=== PATIENT | male | born 1970 | race Caucasian/White ===

== ENCOUNTER → 2017-05-08 09:20 | Outpatient (CLI) | payer OTHER, SELFPAY ==
[2017-05-08 10:18] LABS: ALB/GLOB Ratio 0.9 RATIO (0.9-2.4); AST(SGOT) 31 U/L (15-37); Alanine Aminotransfer ALT/SGPT 36 U/L (16-61); Albumin, Serum 3.7 g/dL (3.2-5.0); Alkaline Phosphatase 114 U/L (45-117); Anion Gap 7 (5-15); BUN 15 mg/dL (7-18); BUN/Creat Ratio 15.4 RATIO (10-20); Calcium,Total 8.5 mg/dL (8.5-10.1); Chloride 104 mmol/L (98-107); Cholesterol 211 mg/dL (200); Creatinine, Serum 0.97 mg/dL (0.70-1.30); EST Glomerular Filtration Rate 88 mL/min (>60); Est Glom Filt Rate - Afr Amer 107 mL/min (>60); Glucose 90 mg/dL (74-106); High Density Lipoprotein 40 mg/dL; Potassium 4.2 mmol/L (3.5-5.1); Protein, Total 7.7 g/dL (6.4-8.2); Sodium Level 140 mmol/L (136-145); Triglycerides 225 mg/dL; Very Low Density Lipoprotein 45 mg/dL (5-40)
== END ==
PROVIDERS: Family Provider Internal Medicine; PCP Internal Medicine; Visit Provider Internal Medicine
DX: E78.5 Hyperlipidemia, unspecified (principal)
CPT/HCPCS: 36415; 80053; 80061

== ENCOUNTER 2022-10-10 06:16 | Emergency (ER) | payer OTHER, SELFPAY ==
[2022-10-10 06:17] VITALS: BP 147/97; PULSE 95; RESP 16; TEMP 36.9; O2SAT 98; BMI 21.9
--- NOTE | 2022-10-10 06:44 | CT_ITS ---
INDICATION: Left lower abdominal pain, diarrhea EXAMINATION: CT Abdomen And Pelvis W/ Contrast Injection TECHNIQUE: Helically acquired images were obtained of the abdomen and pelvis following IV contrast. 2-D reconstructions reviewed. A radiation dose optimization technique was used for this scan. IV Contrast dosage and agent: 100 cc Isovue-370 Oral contrast: None. COMPARISON: Unenhanced CT abdomen and pelvis from 10/14/2016 FINDINGS: LOWER CHEST: Mild subsegmental linear atelectasis. Heart size within normal limits. LIVER: There are few small simple appearing hepatic cysts requiring no additional follow-up. No concerning lesion. GALLBLADDER AND BILIARY TREE: No calcified gallstones identified. No gallbladder wall edema demonstrated. No significant biliary ductal dilation. PANCREAS: No discrete mass or peripancreatic edema. SPLEEN: Normal size without concerning lesion. ADRENAL GLANDS: Unremarkable. KIDNEYS AND URETERS: Normal renal size and position. No perinephric edema or hydronephrosis. No concerning lesion. PERITONEUM: Small amount of free fluid within lower abdomen. No free air or abscess detected. RETROPERITONEUM: No retroperitoneal mass or pathologic fluid collection. BOWEL: Scattered colonic diverticula. Markedly thickened distal descending colon with pericolonic fat stranding and edema. No bowel obstruction. Normal appendix within right lower quadrant. LYMPH NODES: No enlarged mesenteric or retroperitoneal lymph nodes. VESSELS: No acute findings. No abdominal aortic aneurysm. URINARY BLADDER: Mild circumferential urinary bladder wall thickening again noted. Small thin-walled 1.3 cm diverticulum at midline dome of urinary bladder appears stable. REPRODUCTIVE ORGANS: Slightly enlarged prostate gland. ABDOMINAL WALL: Very small umbilical fat hernia. BONES: Left femoral intramedullary laura noted. CT/Abdomen/Pelvis W IV Cont ONLY IMPRESSION: 1. Distal colonic diverticulitis with no perforation or abscess formation. 2. Stable mild urinary bladder wall thickening likely chronic hypertrophy but correlate clinically for symptoms of mild cystitis. 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 3. Other nonurgent findings within body of report. Electronically Signed: Raman Polk MD at 7:37 EDT ,
--- NOTE | 2022-10-10 06:47 | EX.ED.DYSGE1 ---
HPI History of Present Illness Chief Complaint: Abd Pain Informant: patient Narrative Narrative: Patient is a 52-year-old male with remote history of diverticulitis approximately 10 years ago that required admission and IV antibiotics. He states that after he was treated he did not require any further medication and he denies any history of medical issues or taking daily medications. He states that over the past 2 to 3 days he would feel intermittent bouts of lower abdominal pain that worsened last night. He states he could not sleep secondary to the increase in severity of the pain. He reports that he has had bouts of loose stool/diarrhea. He denies any blood or discoloration to it. He denies any fevers or chills but has concern for repeat diverticulitis based on his symptoms and therefore comes in for evaluation [facility] Medical History Diverticulitis history of broken femur Home Medications amoxicillin 875 mg-potassium clavulanate 125 mg tablet 1 tab PO BID 10 days #20 tabs 10/10/22 [Rx Last Taken Unknown] Allergy/AdvReac Type Severity Reaction Status Date / Time No Known Allergies Allergy Verified 10/10/22 06:21 Social History (Updated 05/05/17 @ 09:[address] Shawn Corey MD) Smoking Status: Never smoker alcohol intake: never substance use type: does not use what type of physical activity do you participate in: other details: active lifestyle ROS ROS ED Constitutional Constitutional ED: Denies chills or fever(s) ENT ENT ED: Denies sore throat Cardiovascular Cardiovascular: Denies chest pain Respiratory/Chest Respiratory/Chest: Denies cough or dyspnea Gastrointestinal Gastrointestinal: Reports abdominal pain and diarrhea; Denies nausea or vomiting Genitourinary Genitourinary ED: Denies dysuria Musculoskeletal Musculoskeletal: Denies back pain or myalgias Integumentary Denies rash Neurologic Neurologic: Denies headache(s) Hematologic/Lymphatic Hematologic/Lymphatic: Denies easy bleeding or easy bruising EXAM Physical Exam Const Vital Signs: 10/10/22 06:17 Temperature 98.5 F Temperature Source Temporal Pulse Rate 95 Respiratory Rate 16 Blood Pressure 147/97 H Blood Pressure Mean 113 Pulse Ox 98 Oxygen Delivery Method Room Air Positive well nourished and well developed General Appearance ED: well developed HEENT Reports moist mucous membranes Eyes PERRL and EOMs intact bilaterally General Eye ED: Negative for scleral icterus Neck supple Resp normal respiratory effort and clear to auscultation bilaterally Cardio regular rate and regular rhythm Rate: other Other Details: Radial and carotid pulses are equal and symmetric GI non-distended GI Narrative: Abdomen is soft and nondistended with normal active bowel sounds. Patient has pain with palpation in the left lower quadrant with voluntary guarding. No rigidity noted. No pulsatile mass or fluid wave. Auscultation: normoactive bowel sounds Palpation: soft Back/Spine no CVA tenderness Extremity normal to inspection Neuro oriented x3, CN's II-XII intact bilaterally and no sensory deficits noted Sensorium / Orientation: alert Motor Exam: strength 5/5 throughout Psych mental status grossly normal Skin no rashes or lesions noted General Skin Exam: Negative for jaundice MDM MDM MDM Narrative Medical decision making narrative: Patient presented to the ER afebrile. He reports no past medical history other than remote diverticulitis. He denies any known sick contacts. With pain in the left lower quadrant differential is for acute diverticulitis versus kidney stone versus atypical biliary colic versus colitis/gastroenteritis. As the patient reports he has had nonbloody diarrhea associated with his pain this would be atypical for diverticulitis. However as he does have a past medical history of the disease and pain is in the left lower quadrant it is also present in the differential. As he guards in that region on exam I do feel that it is warranted to repeat blood work and a CT scan as its been multiple years since his last event. Therefore basic blood work and a urine sample will be obtained and patient will be sent for CT scan with IV contrast. The patient's white count is elevated at 17.5 consistent with infection but his lactic acid is normal. The remainder of his labs also show no clinically significant finding. CT scan confirms diverticulitis but there is no abscess obstruction or perforation. On reevaluation he is reporting feeling better and his vitals remained stable. Therefore at this time as he does not have physical exam findings to suggest septicemia and his CT scan confirms infection but without obstruction perforation or abscess formation he can be given oral antibiotics and discharged home. History & Record Review Discussion w/independent historian: Patient Lab Data Attestation: I reviewed the patient's lab results. Labs: Laboratory Results - last 24 hr 10/10/22 10/10/22 06:20 06:54 WBC 17.5 H RBC 4.88 Hgb 14.2 Hct 43.4 MCV 88.9 MCH 29.1 MCHC 32.7 RDW Std Deviation 41.1 RDW Coeff of Steve 12.5 Plt Count 269 MPV 10.0 Immature Gran % (Auto) 0.600 Neut % (Auto) 83.2 H Lymph % (Auto) 8.5 L Spink % (Auto) 7.4 Eos % (Auto) 0.1 Baso % (Auto) 0.2 Absolute Neuts (auto) 14.6 H Absolute Lymphs (auto) 1.49 Nucleated RBC % 0 Sodium 137 Potassium 3.9 Chloride 104 Carbon Dioxide 28.0 Anion Gap 5 BUN 10 Creatinine 0.93 Estim Creat Clear Calc 76.09 Est GFR (MDRD) Af Amer 110 Est GFR (MDRD) Non-Af 91 BUN/Creatinine Ratio 10.8 Glucose 133 H Lactic Acid 0.9 Calcium 8.8 Radiography Diagnostic Testing: Clinical Impression(s) from Imaging Studies Abdomen/Pelvis CT 10/10/22 06:44 IMPRESSION: 1. Distal colonic diverticulitis with no perforation or abscess formation. 2. Stable mild urinary bladder wall thickening likely chronic hypertrophy but correlate clinically for symptoms of mild cystitis. 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 3. Other nonurgent findings within body of report. Electronically Signed: Raman Polk MD at 7:37 EDT Reading Location ID and State: [facility] / [place] Tel , Service support , Discharge Plan Triage Chief Complaint: Abd Pain ED Provider: Candido Turner Dx/Rx/DC Orders Clinical Impression: Diverticulitis Instructions: Diverticulitis Dc Prescriptions: New amoxicillin-pot clavulanate 875-125 mg tablet 1 tab PO BID 10 Days Qty: 20 0RF Primary Care Provider: Shawn Corey Referrals: Shawn Corey MD [Primary Care Provider] - Activity Restrictions/Additional Instructions: Please take your antibiotics as directed to help resolve your infection. It would typically take 48 to 72 hours for improvement. If you have worsening symptoms despite taking your medications please return for repeat evaluation. Disposition Disposition: Home, Self Care
[2022-10-10] MEDS: 0.9% Normal Saline 1,000 ML 999 ML IV (06:50)
[2022-10-10 07:06] LABS: Absolute Lymphocyte Count 1.49 X10^3/uL (0.83-4.51); Absolute Neutrophil Count 14.6 X10^3/uL (2.0-7.7); Basophil# 0.03 X10^3/uL; Basophil% 0.2 % (0-1); Eosinophil# 0.01 X10^3/uL; Eosinophils% 0.1 % (0-5); Hematocrit 43.4 % (40-54); Hemoglobin 14.2 g/dL (13.0-16.5); Lymphocyte # 1.49 X10^3/ul (0.83-4.51); Lymphocyte % 8.5 % (19-41); Mean Corp Hgb Conc 32.7 g/dL (32-36); Mean Corpuscular Hgb 29.1 pg (27.0-32.0); Mean Corpuscular Volume 88.9 fL (80-94); Monocyte# 1.29 X10^3/uL; Monocyte% 7.4 % (0-10); NRBC Flagged by Analyzer 0 % (0-5); Neutrophil % 83.2 % (47-70); Platelet Count 269 K/mm3 (150-450); RBC Distribution Width CV 12.5 % (11.6-14.6); RBC Distribution Width SD 41.1 fl (35.1-43.9); Red Blood Count 4.88 M/mm3 (4.6-6.2); White Blood Count 17.5 K/mm3 (4.4-11.0)
[2022-10-10 07:20] LABS: Anion Gap 5 (5-15); BUN 10 mg/dL (7-18); BUN/Creat Ratio 10.8 RATIO (10-20); Calcium,Total 8.8 mg/dL (8.5-10.1); Chloride 104 mmol/L (98-107); Creatinine, Serum 0.93 mg/dL (0.70-1.30); EST Glomerular Filtration Rate 91 mL/min (>60); Est Glom Filt Rate - Afr Amer 110 mL/min (>60); Estimated Creatinine Clearance 76.09 ml/min; Glucose 133 mg/dL (74-106); Potassium 3.9 mmol/L (3.5-5.1); Sodium Level 137 mmol/L (136-145)
[2022-10-10 07:31] LABS: Lactic Acid 0.9 mmol/L (0.4-1.9)
== END 2022-10-10 08:16 | disposition home or self-care (01) ==
PROVIDERS: Emergency Provider Emergency Medicine; PCP Internal Medicine; Visit Provider Emergency Medicine
DX: K57.32 Diverticulitis of large intestine without perforation or abscess without bleeding (principal)
CPT/HCPCS: 74177; 80048; 83605; 85025; 96365; 99283; J7030; Q9967; A4216